=== PATIENT | male | born 1990 | race Caucasian/White ===

== ENCOUNTER 2023-09-28 03:19 | Day surgery (SDC) | payer OTHER, SELFPAY ==
[2023-09-28] VITALS (11 sets, daily range): BP systolic 110–170; BP diastolic 65–98; PULSE 74–96; RESP 14–20; TEMP 36.5–37.1; O2SAT 94–98; BMI 43.6
--- NOTE | ~2023-09-28 | CT_ITS ---
EXAMINATION: CT ABDOMEN AND PELVIS WITHOUT CONTRAST CLINICAL INFORMATION: Right-sided flank pain COMPARISON: CT abdomen pelvis 12/06/2019, renal ultrasound 02/15/2021 TECHNIQUE: Multidetector volumetric imaging was performed from the superior aspect of the liver through the pubic symphysis. Sagittal and coronal reformatted images were obtained on the technologist's workstation. This CT examination was performed using dose optimization techniques as appropriate, variously including the following: *Automated exposure control *Adjustment of mA and/or kV according to patient size (this includes techniques or standardized protocols for targeted exams where dose is matched to indication/reason for exam; i.e. extremities or head) *Use of iterative reconstruction technique DLP: 914 mGy-cm FINDINGS: LUNG BASES: The visualized lung bases are unremarkable. LIVER, GALLBLADDER, AND BILIARY TREE: The liver is enlarged measuring just over 19 cm in cephalocaudad dimension with decreased attenuation consistent with hepatic steatosis. No focal hepatic lesion or biliary ductal dilatation is present. The gallbladder is unremarkable with no evidence of radiopaque gallstones, gallbladder wall thickening, or obvious pericholecystic inflammatory changes. PANCREAS: Unremarkable. SPLEEN: Spleen is mildly enlarged at 12.6 cm. ADRENAL GLANDS: Unremarkable. KIDNEYS AND URETERS: Right: There is an obstructing 6 x 3 mm stone present at the right UVJ with dilatation of the ureter and mild right-sided hydronephrosis. 2 nonobstructing intrarenal calculi are seen the largest measuring just under 5 mm in the upper pole. No renal masses are seen. Left: There is a nonobstructing 3 mm left lower pole renal calculus. No hydronephrosis or renal masses. The left ureter appears normal. BLADDER: Unremarkable. GASTROINTESTINAL TRACT: The small and large bowel are unremarkable. The appendix is unremarkable. ABDOMINAL WALL: No significant hernia is appreciated. LYMPH NODES: Normal. VASCULAR: Unremarkable. PELVIC VISCERA: The prostate and seminal vesicles are unremarkable. OSSEOUS STRUCTURES: Unremarkable. CT/CT abdomen pelvis wo IV con IMPRESSION: 1. Obstructing 6 x 3 mm right UVJ calculus with mild right-sided hydronephrosis. 2. Bilateral nonobstructing intrarenal calculi. 3. Enlarged fatty liver with mild splenomegaly. Fleischner guidelines were followed.
--- NOTE | ~2023-09-28 | FL_ITS ---
EXAMINATION: XR FLUOROSCOPY WITH IMAGES CLINICAL INFORMATION: Cystoscopy, ureteroscopy, retrograde urography, laser therapy and right ureteric stent placement; 6 mm right UVJ obstructing calculus, with secondary moderate right hydronephroureter. COMPARISON: CT abdomen and pelvis dated 09/28/2023. TECHNIQUE: Fluoroscopy Supervised By: Dr. Colvin. Fluoroscopy Time: 0.3 minutes. Cumulative Dose: 20.9 mGy. DAP: 5.71 Gycm2. Images: 5. FINDINGS: The submitted images show contrast outlining the right intrarenal and extrarenal urinary collecting structures and placement of a double pigtail right ureteric catheter. FL/FL guidance in OR IMPRESSION: Intraoperative fluoroscopic guidance is provided during right urologic procedure. Please see the patient's Operative Report for full procedural details.
[2023-09-28 03:46] LABS: Basophils Percent Auto 0.2 % (0-2); Eosinophils Percent Auto 0.2 % (0-4); Hematocrit 43.5 % (42.0-52.0); Hemoglobin 15.2 g/dl (14.0-18.0); Imm Gran Abs Auto 0.04 X10*3/uL (0.00-0.03); Imm Gran Pct Auto 0.3 % (0.0-0.4); Lymphocytes Absolute Auto 1.4 X10*3/uL (1.2-4.9); MANUAL DIFF FLAG NO; Mean Corpuscular HGB Conc 34.9 g/dl (31.0-36.0); Mean Corpuscular Hemoglobin 29.4 pg (27.0-33.0); Mean Corpuscular Volume 84.1 fL (80.0-98.0); Mean Platelet Volume 9.6 fL (9.4-12.4); Monocytes Absolute Auto 0.6 X10*3/uL (0.1-1.2); Monocytes Percent Auto 4.4 % (2-11); Neutrophils Absolute Auto 10.4 x10*3/uL (2.0-8.3); Neutrophils Percent Auto 83.9 % (45-73); Platelet Count 264 X10*3/uL (160-400); Red Blood Count 5.17 X10*6/uL (4.60-5.80); Red Cell Distribution Width 12.5 % (11.0-16.0); White Blood Count 12.4 X10*3/uL (4.8-10.8)
--- NOTE | 2023-09-28 03:49 | PC.NURSE ---
pt biba from home, a&ox4, respirations even and unlabored, reporting onset of right flank pain x1 day, pt reports being seen at [facility] and being diagnosed with kidney stones and discharged with oxy. pt reports no relief with oxy. pt reports hx of stones. denies urinary symptoms. 20G placed in right wrist, labs obtained and sent to lab. pt normal sinus on tele 88-90bpm.
[2023-09-28 03:59] LABS: Alanine Aminotransferase 29 U/L (0-40); Albumin Level 4.6 g/dL (3.5-5.0); Alkaline Phosphatase 79 U/L (39-117); Anion Gap 15 (12-20); Aspartate Amino Transferase 22 U/L (5-37); Bilirubin Total 0.6 mg/dL (0.0-1.0); Blood Urea Nitrogen 18 mg/dL (9-16); Calcium 9.8 mg/dL (8.4-10.2); Carbon Dioxide 21 mmol/L (22-29); Chloride 108 mmol/L (96-108); Creatinine Clr Calc Pharmacy 134.8; Estimated Glomerular Filt Rate > 60; Glucose Random 141 mg/dL (60-115); Potassium 4.1 mmol/L (3.3-5.1); Sodium 140 mmol/L (135-145); Total Protein 8.3 g/dL (6.5-8.0)
[2023-09-28 04:40] LABS: Appearance Urine Clear; Color Urine Yellow; Glucose Urine UA Negative (Negative); Leukocyte Esterase Urine Negative (Negative); Nitrite Urine Negative (Negative); Specific Gravity - Urine 1.025 (1.005-1.025); UMIC TRIGGER UACC YES; Urine Blood Moderate (2+) (Negative); Urine Ketones 15 mg/dL (Negative); Urine Protein Trace mg/dL (Neg-Trace)
[2023-09-28 04:45] LABS: Bacteria Urine None Seen (None Seen); Hyaline Casts Urine 0-2 /LPF (0-2); Squamous Epithelial Cell Urine 0-2 /HPF (0-2); WBC Urine 0-5 /HPF (0-5)
--- NOTE | 2023-09-28 07:19 | ED_ITS ---
HPI - Male Genitourinary General Chief complaint: Urogenital-Male Stated complaint: kidney stones Time Seen by Provider: 09/28/23 06:58 Source: patient Mode of arrival: ambulatory Limitations: no limitations History of Present Illness HPI Narrative: 32 yo male with PMH of kidney stones here with abrupt onset R flank pain yesterday seen by Cosme YAN dx with distal ureter stone 5mm sent home with zofran and oxycodone pain returned this AM with n/v unable to get comfortable. Last dose of pain medications 210am. Has urologist Dr. Tyson. PATEL Complaint: other (flank pain) Onset (ago): hour(s) (several) Duration: constant Location: right flank Radiation: right inguinal region Severity: severe Quality: sharp Relieving factors: none Exacerbating factors: none Context: other (kidney stones) Associated symptoms: Reports nausea/vomiting Related Data Allergies Allergy/AdvReac Type Severity Reaction Status Date / Time No Known Allergies Allergy Verified 09/28/23 03:39 Review of Systems 2 Review of Systems: Constitutional : No Fever, No Chills ENT/Mouth : No sore throat Eyes: No Eye Pain, No Swelling, No Redness Cardiovascular : No Chest Pain, No SOB Respiratory : No Cough, No Sputum, No Wheezing Gastrointestinal : positive Nausea, positive Vomiting, No Diarrhea, positive abdominal pain Genitourinary : no Dysuria, no urinary frequency, positive Hematuria, positive Flank Pain, Musculoskeletal : No joint pain, No Myalgias Skin : No Skin Lesions, No rash Neuro : No Weakness, No Numbness, No Headache Psych : No Anxiety/Panic, No Depression Heme/Lymph: No Bruising, No Lymphadenopathy Endocrine : No Polyuria, No Polydipsia All other systems reviewed and are negative [facility] Past Medical History Attestation statement: The following information was validated with the patient. Medical History Renal colic Social History Social History Smoked in Last 30 Days: No Use of substances other than those prescribed or required for medical reasons: No Advance Directives: No Advance Directives Information Provided: Yes Physical Exam 2 Vital Signs: Vital Signs: Last Vital Signs Temp 97.7 F 09/28/23 10:40 Pulse 85 09/28/23 10:40 Resp 20 09/28/23 10:40 BP 117/69 09/28/23 10:40 Pulse Ox 96 09/28/23 10:40 O2 Del Method Room Air 09/28/23 10:40 BMI result Body Mass Index 43.6 Appearance: Alert. Oriented X3. in pain mild acute distress. Eyes: Pupils equal, round and reactive to light. ENT: Pharynx normal. Neck: Normal inspection. Neck supple. CVS: Normal heart rate and rhythm. Pulses normal. Respiratory: No respiratory distress. Breath sounds normal. Abdomen: Soft and nontender. Skin: Skin warm and dry. pale skin color. Normal skin turgor. Extremities: No lower extremity edema. No calf ttp Neuro: Oriented X 3. No motor deficit. No sensory deficit. Course Course Course Narrative: still in pain repeat IV dilaudid ordered along with Toradol and repeat imaging Medications Administered Discontinued Medications Generic Name Dose Route Start Last Admin Trade Name Freq PRN Reason Stop Dose Admin Hydromorphone HCl 1 mg 09/28/23 07:18 09/28/23 07:54 Hydromorphone Hcl 1 Mg/Ml Syringe IVPUSH 09/28/23 07:19 1 mg ONCE ONE Administration Protocol Hydromorphone HCl 1 mg 09/28/23 09:11 09/28/23 10:12 Hydromorphone Hcl 1 Mg/Ml Syringe IVPUSH 09/28/23 09:12 1 mg ONCE ONE Administration Protocol Sodium Chloride 1,000 mls @ 999 mls/hr 09/28/23 07:30 09/28/23 09:44 Ns IV 09/28/23 08:30 Infused .Q1H1M YUE Infusion Ketorolac Tromethamine 30 mg 09/28/23 09:11 09/28/23 10:12 Ketorolac Tromethamine 15 Mg/Ml Vial IVPUSH 09/28/23 09:12 30 mg ONCE ONE Administration Ondansetron HCl 4 mg 09/28/23 07:18 09/28/23 07:55 Ondansetron Hcl 4 Mg/2 Ml Vial IVPUSH 09/28/23 07:19 4 mg ONCE ONE Administration Tamsulosin HCl 0.4 mg 09/28/23 07:18 09/28/23 07:55 Tamsulosin Hcl 0.4 Mg Capsule PO 09/28/23 07:19 0.4 mg ONCE ONE Administration Medical Decision Making Medical Decision Making MDM Narrative: 32 yo male with known R ureteral stone distal 5mm from [place] here with recurrent pain - no fevers at this time will provide fluids, labs, UA and treat with zofran, flomax and IV dilaudid. Will obtain imaging from [facility] to assess size and location of stone as well. Differential Diagnosis Differential Diagnoses: The differential diagnosis associated with the presentation includes ureteral calculus, UTI Admission/Observation Consideration of admission/observation: Escalation of care including admission/observation considered repeat pain medications discussed with urology physician observation started at 1239pm until OR opens up this afternoon Consult Healthcare Provider Management of the patient was discussed with: Veterinary Surgery Technologist (urology aware) will try to add on this afternoon Lab Data MDM Lab Attestation statement: I reviewed the patient's lab results. 09/28/23 03:41 09/28/23 03:41 Labs: Lab Results 09/28/23 09/28/23 Range/Units 03:41 04:33 WBC 12.4 H (4.8-10.8) X10*3/uL RBC 5.17 (4.60-5.80) X10*6/uL Hgb 15.2 (14.0-18.0) g/dl Hct 43.5 (42.0-52.0) % MCV 84.1 (80.0-98.0) fL MCH 29.4 (27.0-33.0) pg MCHC 34.9 (31.0-36.0) g/dl RDW 12.5 (11.0-16.0) % Plt Count 264 (160-400) X10*3/uL MPV 9.6 (9.4-12.4) fL Immature Gran % (Auto) 0.3 (0.0-0.4) % Neut % (Auto) 83.9 H (45-73) % Lymph % (Auto) 11.0 L (20-40) % [place] % (Auto) 4.4 (2-11) % Eos % (Auto) 0.2 (0-4) % Baso % (Auto) 0.2 (0-2) % Lymph # (Auto) 1.4 (1.2-4.9) X10*3/uL [place] # (Auto) 0.6 (0.1-1.2) X10*3/uL Eos # (Auto) 0.0 (0.0-0.4) X10*3/uL Baso # (Auto) 0.0 (0.0-0.2) X10*3/uL Abs Immat Gran (auto) 0.04 H (0.00-0.03) X10*3/uL Absolute Neuts (auto) 10.4 H (2.0-8.3) x10*3/uL Absolute Nucleated RBC 0.000 (0.0-0.012) X10*3/uL Nucleated RBC % (auto) 0.0 (0.0-0.2) /100WBC Sodium 140 (135-145) mmol/L Potassium 4.1 (3.3-5.1) mmol/L Chloride 108 (96-108) mmol/L Carbon Dioxide 21 L (22-29) mmol/L Anion Gap 15 (12-20) BUN 18 H (9-16) mg/dL Creatinine 1.09 (0.5-1.4) mg/dL Estim Creat Clear Calc 134.8 Estimated GFR > 60 Random Glucose 141 H (60-115) mg/dL Calcium 9.8 (8.4-10.2) mg/dL Total Bilirubin 0.6 (0.0-1.0) mg/dL AST 22 (5-37) U/L ALT 29 (0-40) U/L Alkaline Phosphatase 79 (39-117) U/L Total Protein 8.3 H (6.5-8.0) g/dL Albumin 4.6 (3.5-5.0) g/dL Urine Color Yellow Urine Appearance Clear Urine pH 6.0 (5.0-9.0) Ur Specific [place] 1.025 (1.005-1.025) Urine Protein Trace (Neg-Trace) mg/dL Urine Glucose (UA) Negative (Negative) mg/dL Urine Ketones 15 (Negative) mg/dL Urine Blood Moderate (2+) H (Negative) Urine Nitrite Negative (Negative) Ur Leukocyte Esterase Negative (Negative) Urine RBC 11-20 H (0-2) /HPF Urine WBC 0-5 (0-5) /HPF Ur Squamous Epith Cells 0-2 (0-2) /HPF Urine Bacteria None Seen (None Seen) Hyaline Casts 0-2 (0-2) /LPF Independent Interpretation I performed an independent interpretation of an: CT Scan (obstructing distal UVJ stone 6x3mm) Radiology Impression Discussion of test interpretation with radiology: I have reviewed the radiologist's reading. External Record Review External record reviewed: Outpatient record Prescription Management I considered prescription management with: Pain Medication and Other Critical Care Time Critical Care Time Critical Care Time: Yes Total Critical Care Time: 60 Attestation: IVF, repeat IV dilaudid x 2 with improvement in pain, review of records I attest to this time spent taking care of the patient Discharge Plan Discharge Clinical Impression: Ureterolithiasis Nausea & vomiting Qualifiers: Vomiting type: unspecified Qualified Code(s): R11.2 - Nausea with vomiting, unspecified Patient Disposition: Admitted as Observation
[2023-09-28] MEDS: 0.9 % Sodium Chloride 1,000 ML 999 ML IV ×2 (07:47→13:44)
[2023-09-28] MEDS: HYDROmorphone HCl 1 MG/ML SYRINGE IVPUSH ×3 (07:54→14:33)
[2023-09-28] MEDS: Tamsulosin HCL 0.4 MG CAPSULE PO (07:55)
[2023-09-28] MEDS: ondansetron HCL 4 MG/2 ML VIAL IVPUSH ×3 (07:55→18:47)
--- NOTE | 2023-09-28 08:00 | PC.NURSE ---
meds and fluid given as documented. pt resting quietly, not apparent distress.
--- NOTE | 2023-09-28 09:41 | PC.NURSE ---
Fluid ended, pain reassessed. New order for pain relief.
[2023-09-28] MEDS: Ketorolac Tromethamine 15 MG/ML VIAL 30 MG IVPUSH (10:12)
--- NOTE | 2023-09-28 14:32 | PM.UROCN ---
History of Present Illness Consult details Consult date: 09/28/23 Narrative: Pratik is a 32-year-old male who presented with right flank pain nausea vomiting. CT imaging note bilateral renal stones with a 6 mm obstructing right ureteral stone. Review of Systems Review of Systems: Yes all other systems are reviewed and are negative Constitutional: Constitutional: Reports no additional constitutional complaints Eyes: Eyes: Reports no additional eye complaints ENT: Reports system reviewed and no additional complaints, except as documented Cardiovascular: Cardiovascular: Reports no additional cardiovascular complaints Respiratory: Respiratory: Reports no additional respiratory complaints Gastrointestinal: Gastrointestinal: Reports no additional gastrointestinal complaints Genitourinary: Genitourinary: Reports as per HPI Musculoskeletal: Musculoskeletal: Reports no additional musculoskeletal complaints Integumentary/Breasts: Skin/Breast: Reports system reviewed and no additional complaints, except as docu Neurologic: Reports system reviewed and no additional complaints, except as documented Psychiatric: Psychiatric: Reports no additional psychiatric complaints Endocrine: Endocrine: Reports no additional endocrine complaints Hematologic/Lymphatic: Hematologic/Lymphatic: Reports no additional hematologic/lymphatic complaints Allergic/Immunologic: Allergic/Immunologic: Reports no additional allergic/immunologic complaints [facility] Past Medical History Medical History Renal colic Social History Social History Smoked in Last 30 Days: No Use of substances other than those prescribed or required for medical reasons: No Advance Directives: No Advance Directives Information Provided: Yes Meds Allergies Allergy/AdvReac Type Severity Reaction Status Date / Time No Known Allergies Allergy Verified 09/28/23 03:39 Active Medications: Current Medications Hydromorphone HCl (Hydromorphone Hcl 1 Mg/Ml Syringe) 1 mg IVPUSH Q3H PRN; Protocol PRN Reason: Pain, Moderate(Pain Scale 4-6) Sodium Chloride (Ns) 1,000 mls @ 100 mls/hr IVCONT .Q10H YUE Ondansetron HCl (Ondansetron Hcl 4 Mg/2 Ml Vial) 4 mg IVPUSH Q8H PRN PRN Reason: Nausea and Vomiting Physical Exam Vital Signs: Vital Signs: Last Vital Signs Temp 97.7 F 09/28/23 10:40 Pulse 85 09/28/23 10:40 Resp 20 09/28/23 10:40 BP 117/69 09/28/23 10:40 Pulse Ox 96 09/28/23 10:40 O2 Del Method Room Air 09/28/23 10:40 BMI result Body Mass Index 43.6 Const: General: healthy appearing, no acute distress and well developed Orientation/consciousness: patient oriented x3 HEENT: Head: Yes normocephalic and Yes atraumatic Eyes: Conjunctivae: conjunctivae normal Neck: Neck: Yes normal visual inspection Chest: Chest palpation & inspection: normal inspection of the chest Resp: Effort & Inspection: normal respiratory effort Cardio: Rate: regular rate GI: Inspection: Yes normal to inspection Neuro: General: patient oriented x3 Psych: Appearance: grossly normal Affect: normal affect Results Labs 09/28/23 03:41 09/28/23 03:41 Labs: Abnormal lab results 09/28/23 09/28/23 Range/Units 03:41 04:33 WBC 12.4 H (4.8-10.8) X10*3/uL Neut % (Auto) 83.9 H (45-73) % Lymph % (Auto) 11.0 L (20-40) % Abs Immat Gran (auto) 0.04 H (0.00-0.03) X10*3/uL Absolute Neuts (auto) 10.4 H (2.0-8.3) x10*3/uL Carbon Dioxide 21 L (22-29) mmol/L BUN 18 H (9-16) mg/dL Random Glucose 141 H (60-115) mg/dL Total Protein 8.3 H (6.5-8.0) g/dL Urine Blood Moderate (2+) H (Negative) Urine RBC 11-20 H (0-2) /HPF Short CBC 09/28/23 Range/Units 03:41 WBC 12.4 H (4.8-10.8) X10*3/uL Hgb 15.2 (14.0-18.0) g/dl Hct 43.5 (42.0-52.0) % Plt Count 264 (160-400) X10*3/uL BMP 09/28/23 03:41 Sodium 140 Potassium 4.1 Chloride 108 Carbon Dioxide 21 L BUN 18 H Creatinine 1.09 Calcium 9.8 Liver Function 09/28/23 Range/Units 03:41 Total Bilirubin 0.6 (0.0-1.0) mg/dL AST 22 (5-37) U/L ALT 29 (0-40) U/L Alkaline Phosphatase 79 (39-117) U/L Albumin 4.6 (3.5-5.0) g/dL Urine 09/28/23 Range/Units 04:33 Urine Color Yellow Urine Appearance Clear Urine pH 6.0 (5.0-9.0) Ur Specific [place] 1.025 (1.005-1.025) Urine Protein Trace (Neg-Trace) mg/dL Urine Glucose (UA) Negative (Negative) mg/dL Imaging Abdomen CT scan report/results: report reviewed and image reviewed CT scan - pelvis: report reviewed and image reviewed Assessment and Plan (1) Ureterolithiasis: Status: Acute (2) Nausea & vomiting: Qualifiers: Vomiting type: unspecified Qualified Code(s): R11.2 - Nausea with vomiting, unspecified Status: Acute (3) Hydronephrosis, right: Status: Acute Plan Plan for Cystoscopy, right ureteroscopy, possible laser lithotripsy, possible ureteral stent. Risks discussed included but not limited to, possible need to repeat procedure if stone is not completely fragmented, Irritative voiding symptoms, bladder spasms, urgency, blood in urine. Procedures Date of Service Date of Service: 09/28/23
[2023-09-28] MEDS: 0.9 % Sodium Chloride 1,000 ML 100 ML IVCONT (15:44)
--- NOTE | 2023-09-28 16:04 | PC.NURSE ---
verbal report given to ENGINEERING OPERATIONS LEADER at bedside.
--- NOTE | 2023-09-28 16:21 | HO.ANESPROP2 ---
[facility] Active Problems Active Problems: All Active Problems Hydronephrosis, right (Acute) Ureterolithiasis (Acute) Nausea & vomiting (Acute) Past Medical History Medical History Renal colic Functional capacity: independent ambulation Family History Family history of problems with anesthesia: No Surgical History History of Problems with Anesthesia: Yes (states afib x 1 four years ago with prior cysto. f/u negative: no further problems) Social History Social History Smoked in Last 30 Days: No Use of substances other than those prescribed or required for medical reasons: No Advance Directives: No Advance Directives Information Provided: Yes Meds Allergies Allergy/AdvReac Type Severity Reaction Status Date / Time No Known Allergies Allergy Verified 09/28/23 03:39 Active Medications: Current Medications Fentanyl (Fentanyl Citrate/Pf 100 Mcg/2 Ml Vial) 25 mcg IVPUSH Q5M PRN; Protocol PRN Reason: Pain, Moderate(Pain Scale 4-6) Stop: 09/28/23 22:19 Hydromorphone HCl (Hydromorphone Hcl 1 Mg/Ml Syringe) 1 mg IVPUSH Q3H PRN; Protocol PRN Reason: Pain, Moderate(Pain Scale 4-6) Last Admin: 09/28/23 14:33 Dose: 1 mg Hydromorphone HCl (Hydromorphone Hcl 0.5 Mg/0.5 Ml Syringe) 0.5 mg IVPUSH Q5M PRN; Protocol PRN Reason: Pain, Severe (Pain Scale 7-10) Stop: 09/28/23 22:20 Sodium Chloride (Ns) 1,000 mls @ 100 mls/hr IVCONT .Q10H YUE Last Admin: 09/28/23 15:44 Dose: 100 mls/hr Ondansetron HCl (Ondansetron Hcl 4 Mg/2 Ml Vial) 4 mg IVPUSH Q8H PRN PRN Reason: Nausea and Vomiting Last Admin: 09/28/23 14:33 Dose: 4 mg Exam Height,Weight and Vital Signs: Height 5 ft 10 in Weight 137.7 kg Last Vital Signs Temp 98.4 F 09/28/23 15:10 Pulse 74 09/28/23 15:10 Resp 18 09/28/23 15:10 BP 117/70 09/28/23 15:10 Pulse Ox 96 09/28/23 15:10 O2 Del Method Room Air 09/28/23 15:10 Pertinent Lab Results Pertinent Lab Results: Laboratory Tests 09/28/23 09/28/23 03:41 04:33 WBC 12.4 H RBC 5.17 Hgb 15.2 Hct 43.5 MCV 84.1 MCH 29.4 MCHC 34.9 RDW 12.5 Plt Count 264 MPV 9.6 Immature Gran % (Auto) 0.3 Neut % (Auto) 83.9 H Lymph % (Auto) 11.0 L [place] % (Auto) 4.4 Eos % (Auto) 0.2 Baso % (Auto) 0.2 Lymph # (Auto) 1.4 [place] # (Auto) 0.6 Eos # (Auto) 0.0 Baso # (Auto) 0.0 Abs Immat Gran (auto) 0.04 H Absolute Neuts (auto) 10.4 H Absolute Nucleated RBC 0.000 Nucleated RBC % (auto) 0.0 Sodium 140 Potassium 4.1 Chloride 108 Carbon Dioxide 21 L Anion Gap 15 BUN 18 H Creatinine 1.09 Estim Creat Clear Calc 134.8 Estimated GFR > 60 Random Glucose 141 H Calcium 9.8 Total Bilirubin 0.6 AST 22 ALT 29 Alkaline Phosphatase 79 Total Protein 8.3 H Albumin 4.6 Urine Color Yellow Urine Appearance Clear Urine pH 6.0 Ur Specific [place] 1.025 Urine Protein Trace Urine Glucose (UA) Negative Urine Ketones 15 Urine Blood Moderate (2+) H Urine Nitrite Negative Ur Leukocyte Esterase Negative Urine RBC 11-20 H Urine WBC 0-5 Ur Squamous Epith Cells 0-2 Urine Bacteria None Seen Hyaline Casts 0-2 Airway Mallampati Class: III TM Dist: <=3cm Neck ROM: Full Loose/Missing/Broken Teeth: No Heart: rrr Lungs: cta Other: cecilia Assessment and Plan Assessment Anesthesia Assessment: Anesthesia Plan Discussed and Chart Reviewed Final Anesthetic Review Family History of Problems with Anesthesia: No History of Problems with Anesthesia: Yes (states afib x 1 four years ago with prior cysto. f/u negative: no further problems) NPO: Yes ASA Class: III Final Preanesthetic Review: No Changes in Pt Med Stat, Meds/Allgs Chart Reviewed, Consent Obtained/Reviewed and Anes Risks/Benef Reviewed Patient Risk: Intermediate Procedure Risk: Intermediate Anesthetic Plan Anesthetic Plan: GA Disposition: Standard PACU
--- NOTE | 2023-09-28 18:02 | P.OP_ITS ---
Operative Note Operative Note Date of Service: 09/28/23 Narrative: PreOperative Diagnosis:?? Right ureteral stone, right hydronephrosis Post Operative Diagnosis:?? Right ureteral stone, right hydronephrosis Procedure: - cystoscopy, right retrograde, right ureteroscopy laser lithotripsy stent insertion, 6 [place] by multi length 22 to 32 cm Surgeon:?Dr Emily Colvin Anesthesia:? General Indications for procedure: Right flank pain nausea vomiting secondary to obstructive uropathy right ureteral stone. Procedure: After informed consent was verified the patient was brought to the operating placed on the OR table in supine position.? General Anesthesia was administered per protocol.? The patient was placed in lithotomy position, prepped and draped in the usual sterile fashion.? Safety pause time-out and side of surgery confirmed.? Antibiotics confirmed. 2% lidocaine jelly 10 mL was pa ssed transurethrally. A 22 [place] cystoscope was inserted transurethrally, the bulbous urethra was within normal limits. The prostatic urethra was nonobstructive. The bladder was visualized.? Both ureteric orifices were in normal position. An open-ended ureteral catheter was passed into the right ureteral orifice and a retrograde examination was performed. There was a filling defect in the distal ureter and dilatation of the proximal ureter and renal pelvis and calyces. A guidewire was passed through the ureteral catheter into the kidney. The balloon dilator size 15 fr was passed over the guide -wire the balloon was inflated to 8 mmHg and the intramural ureter was dilated for 40 seconds. The balloon was deflated and removed. After removing the balloon dilator the cystoscope was removed, leaving the guidewire in place which was used as the safety and was attached to the draping. The semi rigid ureteroscope was passed transurethrally into the right distal ureter to the level of the stone in the ureter. Laser lithotripsy of the stone was done using the 365 fiber, the stone was lasered on the dusting setting for minimal amount of time before migrating superficially into the mid to proximal ureter. Attempts to pass the ureteroscope proximally noted some resistance in the mid ureter at the iliac juncture; And decision to place a stent was made. The ureteroscope was removed. A? 6 [place] by multi length cm stent was placed into the ureter and renal pelvis under a combination of fluoroscopy and direct visualization. The bladder was emptied.? The rigid cystoscope was removed. ? The patient tolerated the procedure well and was brought to the recovery room in stable condition. Complications: None Drains: Ureteral stent as dictated above
[2023-09-28] MEDS: Phenazopyridine HCL 200 MG TABLET PO (18:17)
== END 2023-09-28 19:03 | disposition home or self-care (01) ==
LOC: HO.ED 13:01 → HO.SSS 13:17
PROVIDERS: Emergency Provider Emergency Medicine; Visit Provider Urology
PROC: (CPT 52356; principal; 2023-09-28 17:00)
DX: N20.1 Calculus of ureter (principal); N13.30 Unspecified hydronephrosis; R11.2 Nausea with vomiting, unspecified
CPT/HCPCS: 52356; 36415; 74176; 80053; 81001; 85025; 96361; 96374; 96375; 96376; 99285; C1726; C1769; C2617; J0690; J1170; J1885; J2250; J2371; J2405; J2704; J3010; Q9967

== ENCOUNTER → 2023-09-28 13:10 | Outpatient (BNV) | payer OTHER, SELFPAY | PROVIDERS: Emergency Provider Emergency Medicine; Visit Provider Urology | DX: N20.1 Calculus of ureter (principal); N13.30 Unspecified hydronephrosis; R11.2 Nausea with vomiting, unspecified | CPT/HCPCS: 52356; 74420; 99284 ==

== ENCOUNTER 2023-10-11 14:17 | Outpatient (AMB) | payer OTHER, SELFPAY ==
--- NOTE | 2023-10-11 14:21 | A.OFFVIS_ITS ---
Intake Visit Reasons: Follow up ureteroscopy stent Intake Note: Patient presents today for follow up: Meds- Oxybutynin & pyridiun Allergies to Antibiotic- No Known Allergies Blood Thinner- None Software Engineer Sales Required: No Accompanied by: Self / Same As Patient Allergies No Known Allergies Allergy (Verified 10/11/23 15:16) Medication List - Last Reconciled 10/11/23 by Emily Colvin MD oxybutynin chloride ER 5 mg PO .qhs oxycodone-acetaminophen 5-325 mg (Percocet) 1 tab PO .q6h-8h PRN phenazopyridine (Pyridium) 200 mg PO Q8H PRN HPI Comments Details: Pratik is a 32-year-old male who was initially evaluated 09/28/23 with complaints of right flank pain nausea vomiting. CT imaging noted bilateral renal stones with a 6 mm obstructing right ureteral stone. He is status post cystoscopy right ureteroscopy right ureteral stent. He presents for follow-up for further stone management. He states that he has had some bladder spasms due to the stent. I have discussed cysto right ureteroscopy possible laser lithotripsy stent exchange vs stent removal. [facility] Medical History (Updated 10/17/23 @ 17:15 by Emily Colvin MD) Renal colic Surgical History (Updated 10/11/23 @ 15:17 by YONNY Stewart) Hx of lithotripsy Family History (Updated 10/11/23 @ 15:17 by YONNY Stewart) Father No problems noted. Mother No problems noted. Social History Patient Tobacco Use Status: Never used Tobacco Review of Systems Const All systems reviewed & are unremarkable except as noted in HPI and below Reports no additional complaints Eyes Reports no additional complaints ENT Reports no additional complaints Card Reports no additional complaints Resp Reports no additional complaints GI Reports no additional complaints Reports as per HPI Musc Reports no additional complaints Skin/Breast Reports system reviewed and no additional complaints, except as documented Neuro Reports no additional complaints Psych Reports no additional complaints Endo Reports no additional complaints Ari/Lymph Reports no additional complaints Aller/Immun Reports no additional complaints Physical Exam Const General: healthy appearing, no acute distress and well developed Orientation/consciousness: patient oriented x3 HEENT Head: Yes normocephalic and Yes atraumatic Eyes Conjunctivae: conjunctivae normal Neck Neck: Yes normal visual inspection Chest Chest palpation & inspection: normal inspection of the chest Resp Effort & Inspection: normal respiratory effort Cardio Rate: regular rate GI Inspection: Yes normal to inspection Neuro General: patient oriented x3 Psych Appearance: grossly normal Affect: normal affect Results AMB Urinalysis, Automated UA Leukoctes 500 Edi/uL Last Edit by YONNY Stewart on 10/11/23 14:42 3+ Luan Tony 10/11/23 14:42 UA Nitrite Positive Last Edit by YONNY Stewart on 10/11/23 14:42 UA Urobilinogen 4 mg/dL Last Edit by YONNY Stewart on 10/11/23 14:42 UA Protein 30 mg/dL Last Edit by YONNY Stewart on 10/11/23 14:42 UA pH 5.0 Last Edit by YONNY Stewart on 10/11/23 14:42 UA Blood 200 Michael/uL Last Edit by YONNY Stewart on 10/11/23 14:42 3+ Luan Tony 10/11/23 14:42 UA Specific Blackburn 1.020 Last Edit by YONNY Stewart on 10/11/23 14: 42 UA Ketone Positive Last Edit by YONNY Stewart on 10/11/23 14:42 5 mg/dL Luan Tony 10/11/23 14:42 UA Bilirubin 2 mg/dL Last Edit by YONNY Stewart on 10/11/23 14:42 UA Glucose 0 mg/dL Last Edit by YONNY Stewart on 10/11/23 14:42 Results Reviewed Results Reviewed: Laboratory Last Values Urine pH (Auto) 5.0 10/11/23 14:40 Specific Blackburn (Auto) 1.020 10/11/23 14:40 Urine Protein (Auto) 30 mg/dL 10/11/23 14:40 Glucose (UA)(Auto) 0 mg/dL 10/11/23 14:40 Urine Ketones (Auto) Positive 10/11/23 14:40 Urine Blood (Auto) 200 Michael/uL 10/11/23 14:40 Urine Nitrite (Auto) Positive 10/11/23 14:40 Urine Bilirubin (Auto) 2 mg/dL 10/11/23 14:40 Urine Urobilinogen (Auto) 4 mg/dL 10/11/23 14:40 Leukocyte Esterase (Auto) 500 Edi/uL 10/11/23 14:40 Date of Service: 09/28/23 EXAMINATION: CT ABDOMEN AND PELVIS WITHOUT CONTRAST CLINICAL INFORMATION: Right-sided flank pain COMPARISON: CT abdomen pelvis 12/06/2019, renal ultrasound 02/15/2021 TECHNIQUE: Multidetector volumetric imaging was performed from the superior aspect of the liver through the pubic symphysis. Sagittal and coronal reformatted images were obtained on the technologist's workstation. This CT examination was performed using dose optimization techniques as appropriate, variously including the following: *Automated exposure control *Adjustment of mA and/or kV according to patient size (this includes techniques or standardized protocols for targeted exams where dose is matched to indication/reason for exam; i.e. extremities or head) *Use of iterative reconstruction technique DLP: 914 mGy-cm FINDINGS: LUNG BASES: The visualized lung bases are unremarkable. LIVER, GALLBLADDER, AND BILIARY TREE: The liver is enlarged measuring just over 19 cm in cephalocaudad dimension with decreased attenuation consistent with hepatic steatosis. No focal hepatic lesion or biliary ductal dilatation is present. The gallbladder is unremarkable with no evidence of radiopaque gallstones, gallbladder wall thickening, or obvious pericholecystic inflammatory changes. PANCREAS: Unremarkable. SPLEEN: Spleen is mildly enlarged at 12.6 cm. ADRENAL GLANDS: Unremarkable. KIDNEYS AND URETERS: Right: There is an obstructing 6 x 3 mm stone present at the right UVJ with dilatation of the ureter and mild right-sided hydronephrosis. 2 nonobstructing intrarenal calculi are seen the largest measuring just under 5 mm in the upper pole. No renal masses are seen. Left: There is a nonobstructing 3 mm left lower pole renal calculus. No hydronephrosis or renal masses. The left ureter appears normal. BLADDER: Unremarkable. GASTROINTESTINAL TRACT: The small and large bowel are unremarkable. The appendix is unremarkable. ABDOMINAL WALL: No significant hernia is appreciated. LYMPH NODES: Normal. VASCULAR: Unremarkable. PELVIC VISCERA: The prostate and seminal vesicles are unremarkable. OSSEOUS STRUCTURES: Unremarkable. IMPRESSION: 1. Obstructing 6 x 3 mm right UVJ calculus with mild right-sided hydronephrosis. 2. Bilateral nonobstructing intrarenal calculi. 3. Enlarged fatty liver with mild splenomegaly. Assessment & Plan Assessment & Plan (1) Ureteral stent present: Code(s): Z96.0 - Presence of urogenital implants Category: Medical (2) Ureterolithiasis: Code(s): N20.1 - Calculus of ureter Category: Medical (3) Calcium nephrolithiasis: Code(s): N20.0 - Calculus of kidney Category: Medical Plan Cysto right ureteroscopy possible laser litho lithotripsy stent exchange vs stent removal. KUB today Orders: Orders AMB Urinalysis Automated 10/11/23 Z13.9 - Encounter for screening, unspecified Patient Instructions: The patient had an opportunity to ask questions regarding treatment plan. The patient expressed understanding and agreement with the above treatment plan. The patient is aware they should contact our office by phone for worsening of their current condition or the appearance of new symptoms. Compliance is encouraged with any medications and followup testing that is ordered. It is a privilege to be allowed the opportunity to participate in the urologic care of your patient. If you have any questions or concerns regarding treatment for the above conditions please do not hesitate to contact me. The office telephone contact is [phone]. This note is constructed in part using voice recognition software. While every effort has been made to ensure accuracy christian science reader errors may have been included. Yours sincerely, Emily Colvin MD Coding Level of Care Code Est Pt Level 4 (71076) Diagnoses Ureteral stent present Z96.0 Ureterolithiasis N20.1 Calcium nephrolithiasis N20.0
== END 2023-10-11 14:54 | disposition home or self-care (01) ==
PROVIDERS: PCP Internal Medicine; Visit Provider Urology
DX: Z96.0 Presence of urogenital implants (principal); N20.1 Calculus of ureter; N20.0 Calculus of kidney
CPT/HCPCS: 99214

== ENCOUNTER 2023-10-11 14:17 | Outpatient (REF) | payer OTHER, SELFPAY ==
--- NOTE | ~2023-10-11 | XR_ITS ---
EXAMINATION: XR ABDOMEN KUB CLINICAL INDICATION: Calculus of ureter, follow-up right ureteral stent, right ureteral stone status post ureteral stent. COMPARISON: 09/28/2023 hour images, 09/28/2023 CT abdomen and pelvis, 02/15/2021 x-ray abdomen. TECHNIQUE: 2 AP views of the abdomen. FINDINGS: Right double pigtail ureteral stent with proximal end overlying right renal pelvis and distal end overlying bladder. Small calcifications measuring up to 5 mm in the upper pole overlying the interpolar region of the right kidney. 3 mm left renal lower pole calculus redemonstrated. Nonobstructive bowel gas pattern. Moderate amount of stool in the colon. Bilateral sacroiliac joints are symmetric. XR/XR KUB IMPRESSION: Bilateral nephrolithiasis.
== END 2023-10-11 14:18 | disposition home or self-care (01) ==
LOC: HO.XRAY 14:17
PROVIDERS: PCP Internal Medicine; Visit Provider Urology
DX: N20.1 Calculus of ureter (principal); N20.0 Calculus of kidney; R10.9 Unspecified abdominal pain; Z96.0 Presence of urogenital implants; Z79.899 Other long term (current) drug therapy
CPT/HCPCS: 74018; 81003

== ENCOUNTER 2023-10-24 08:10 | Day surgery (SDC) | payer OTHER, MEDICAID, SELFPAY ==
[2023-10-20 11:20] VITALS: BMI 42.3
--- NOTE | 2023-10-20 13:15 | HO.ANESPROP2 ---
Documented by User: Jazmin Barth NP 10/20/23 13:17 HPI - Anesthesia Eval Consult details Narrative: 32yo M for Right Cystoscopy, Ureteroroscopy, Retro, Laser with stent exchange s/p cysto 09/28/23 with GA-LMA 5 PMFSH Active Problems Active Problems: All Active Problems Calcium nephrolithiasis (Acute) Ureteral stent present (Acute) Ureterolithiasis (Acute) Past Medical History Medical History Atrial fibrillation Renal colic Family History Family History Father No problems noted. Mother No problems noted. Family history of problems with anesthesia: No Surgical History Surgical History Hx of cystoscopy Hx of lithotripsy History of Problems with Anesthesia: Yes (states afib x 1 four years ago with prior cysto. f/u negative: no further problems) Social History Social History Household Members Other:: 2 year old daughter Are you a primary critical care specialist to a significant other at home: Yes (50/50 custody with child's mother) Do you presently have visiting nurse or other home services: No Patient Tobacco Use Status: Never used Tobacco Use of substances other than those prescribed or required for medical reasons: No Have you been hit, kicked, punched, or otherwise hurt by someone within the past year? If so, by whom?: No Are you DNR?: No Advance Directives: No Advance Directives Information Provided: Yes Advance Directives on File: No Recently lost weight without trying: No Eating poorly because of decreased appetite: No Nutrition Risks: No Nutritional Risk Poor oral hygiene: No Meds Allergies Allergy/AdvReac Type Severity Reaction Status Date / Time No Known Allergies Allergy Verified 10/11/23 15:16 Exam Height,Weight and Vital Signs: Height 5 ft 10 in Weight 133.81 kg Assessment and Plan Assessment Anesthesia Assessment: Chart Reviewed Final Anesthetic Review Family History of Problems with Anesthesia: No History of Problems with Anesthesia: Yes (states afib x 1 four years ago with prior cysto. f/u negative: no further problems) Documented by User: Tyesha Ross MD 10/24/23 10:53 PMFSH Past Medical History Medical History Atrial fibrillation Renal colic Family History Family History Father No problems noted. Mother No problems noted. Surgical History Surgical History Hx of cystoscopy Hx of lithotripsy Social History Social History Household Members Other:: 2 year old daughter Are you a primary critical care specialist to a significant other at home: Yes (50/50 custody with child's mother) Do you presently have visiting nurse or other home services: No Patient Tobacco Use Status: Never used Tobacco Use of substances other than those prescribed or required for medical reasons: No Have you been hit, kicked, punched, or otherwise hurt by someone within the past year? If so, by whom?: No Are you DNR?: No Advance Directives: No Advance Directives Information Provided: Yes Advance Directives on File: No Recently lost weight without trying: No Eating poorly because of decreased appetite: No Nutrition Risks: No Nutritional Risk Poor oral hygiene: No Meds Allergies Allergy/AdvReac Type Severity Reaction Status Date / Time No Known Allergies Allergy Verified 10/11/23 15:16 Exam Airway Mallampati Class: III TM Dist: >3cm Neck ROM: Full Loose/Missing/Broken Teeth: No Heart: RRR Lungs: CTA Assessment and Plan Assessment Anesthesia Assessment: Anesthesia Plan Discussed Final Anesthetic Review NPO: Yes ASA Class: III Final Preanesthetic Review: Meds/Allgs Chart Reviewed, Consent Obtained/Reviewed and Anes Risks/Benef Reviewed Patient Risk: Intermediate Procedure Risk: Low Anesthetic Plan Anesthetic Plan: GA Disposition: Standard PACU
--- NOTE | ~2023-10-24 | FL_ITS ---
EXAMINATION: XR FLUOROSCOPY WITH IMAGES CLINICAL INFORMATION: Stone, right. COMPARISON: CT abdomen and pelvis 09/28/2023. TECHNIQUE: Fluoroscopy Supervised By: Dr. Colvin. Fluoroscopy Time: 8.1 sec. Cumulative Dose: 4.32 mGy. Images: 1. FINDINGS: Intraoperative fluoroscopy and spot films were performed during a procedure in the OR. The renal calculi seen on the prior CT are not visualized on this single included image. Please see Dr. Colvin's report for complete details. FL/FL guidance in OR IMPRESSION: Intraoperative fluoroscopy and spot films were obtained. Please see Dr. Colvin's report for complete details.
[2023-10-24 08:40] VITALS: BMI 42.3
[2023-10-24 09:22] VITALS: BP 131/90; PULSE 73; RESP 16; TEMP 36.4; O2SAT 94
[2023-10-24] MEDS: Lactated Ringers 1,000 ML 100 ML IVCONT (09:23)
--- NOTE | 2023-10-24 10:16 | MHC.SHP ---
Pre-Procedural Eval Section A - 24 Hr Update-Section A only Date of Service: 10/24/23 The patient is an INPATIENT: No The patient has been examined within 24 hours of the surgical procedure. The History & Physical has been completed within 30 days and I have reviewed it.: Yes Section B - Complete if H&P > 30 days Chief Complaint: Unspecified hydronephrosis Allergies: Allergies Allergy/AdvReac Type Severity Reaction Status Date / Time No Known Allergies Allergy Verified 10/11/23 15:16 Plan Diagnosis/Plan: Unchanged I have reviewed the history and physical and performed a pertinent physical examination on my patient. No changes have occurred unless specified. Plan for Cystoscopy, right ureteroscopy, possible laser lithotripsy, possible ureteral stent exchange, versus remove right ureteral stent. Risks discussed included but not limited to, possible need to repeat procedure if stone is not completely fragmented, Irritative voiding symptoms, bladder spasms, urgency, blood in urine. Time Spent With Patient Time: Total time managing care of this patient today ____ minutes.
--- NOTE | 2023-10-24 11:02 | P.OP_ITS ---
Operative Note Operative Note Date of Service: 10/24/23 Narrative: PreOperative Diagnosis:?? Right ureteral stone, right hydronephrosis status post laser lithotripsy stent Post Operative Diagnosis:?? Right ureteral stone, right hydronephrosis status post laser lithotripsy stent Procedure: Cystoscopy, Right ureteroscopy stent removal Surgeon:?Dr Emily Colvin Anesthesia:? General Indications for procedure: Pratik is a 32-year-old male who status post right ureteroscopy laser lithotripsy and stent placement. The patient has anxiety related to removal of the stent while awake states that he has post traumatic stress related to being awake when having something placed through his urethra. He is being brought in for ureteroscopy to evaluate for any remaining stone fragments and stent removal. Procedure: After informed consent was verified the patient was brought to the operating placed on the OR table in supine position.? General Anesthesia was administered per protocol.? The patient was placed in lithotomy position, prepped and draped in the usual sterile fashion.? Safety pause time-out and side of surgery confirmed.? Antibiotics confirmed. A 22 Turkmen cystoscope was inserted transurethrally, the bulbous urethra was within normal limits. The prostatic urethra was nonobstructive. The bladder was visualized.? Both ureteric orifices were in normal position. The right ureteral stent was curled in the bladder. The? distal end of the ureteral stent was grasped with the flexible grasping forceps. The stent was pulled retrograde through the urethra. A guidewire was passed through the stent. The semi rigid ureteroscope was passed over the guidewire transurethrally into the right ureter there were no remaining fragments noted the ureteral tissue was within normal limits. The ureteroscope was removed. The guidewire was then removed. The patient tolerated the procedure well and was brought to the recovery room in stable condition. Complications: None Drains: Ureteral stent as dictated above
[2023-10-24 11:10] VITALS: BP 113/86; PULSE 86; RESP 18; TEMP 37; O2SAT 96
[2023-10-24 11:15] VITALS: BP 114/66; PULSE 88; RESP 16; O2SAT 97
[2023-10-24 11:20] VITALS: BP 100/50; PULSE 63; RESP 16; O2SAT 95
[2023-10-24 11:25] VITALS: BP 114/53; PULSE 65; RESP 16; O2SAT 96
[2023-10-24 11:40] VITALS: BP 109/57; PULSE 75; RESP 18; TEMP 36.6; O2SAT 94
== END 2023-10-24 12:50 | disposition home or self-care (01) ==
PROVIDERS: Visit Provider Urology
PROC: (CPT 52310; principal; 2023-10-24 09:50)
DX: N13.30 Unspecified hydronephrosis (principal); N20.1 Calculus of ureter; N20.0 Calculus of kidney; N32.89 Other specified disorders of bladder; F41.9 Anxiety disorder, unspecified; Z98.890 Other specified postprocedural states; I48.91 Unspecified atrial fibrillation; Z79.899 Other long term (current) drug therapy
CPT/HCPCS: 52310; C1758; C1769; J0131; J0690; J1100; J1885; J2250; J2371; J2405; J2704; J3010; Q9967

== ENCOUNTER → 2023-10-24 08:10 | Outpatient (BNV) | payer OTHER, SELFPAY | PROVIDERS: Visit Provider Urology | DX: N13.30 Unspecified hydronephrosis (principal); Z96.0 Presence of urogenital implants | CPT/HCPCS: 52310 ==

== ENCOUNTER 2023-11-09 13:15 | Outpatient (AMB) | payer OTHER, SELFPAY ==
--- NOTE | 2023-11-09 13:16 | A.OFFVIS_ITS ---
Intake Visit Reasons: Retrograde, Ureteroscopy- follow up Intake Note: Patient presents today for follow up: Meds- Oxybutynin & pyridiun--patient no longer using Allergies to Antibiotic- No Known Allergies Blood Thinner- None Product Merchandiser Required: No Accompanied by: Self / Same As Patient Allergies No Known Allergies Allergy (Verified 10/11/23 15:16) Medication List - Last Reconciled 11/09/23 by Emily Colvin MD pyridoxine (vitamin B6) 100 mg PO DAILY HPI Comments Details: 11/09/2023--Pratik is status post ureteroscopy and stent removal on 10/24/2023. He is followed for nephrolithiasis. He has bilateral renal stones largest 5 mm in the right kidney. I have discussed management including ESWL versus conservative monitoring. Discussed risks to include but not limited to, blood in the urine, bruising to the skin, kidney hematoma, possible need for another procedure if a stone fragment obstructs the ureter while passing, possible need to repeat procedure if stone is not completely fragmented. I have discussed diet modification to decrease risk of forming more kidney stones. I have discussed low oxalate diet and specific foods to avoid including certain green leafy vegetables, chocalate, nuts, tea, beets, rubarb; low sodium, decreased use of animal protein and the importance of hydration drinking up to 2-2.5 liters of fluids and use of adding lemon to water to increase citrate in the diet. A pamphlet is also provided today. Plan schedule right ESWL. 24 hour urine collection. Vitamin B6 100 mg daily CTAP: 09/28/23--6 mm right UVJ stone in addition right kidney 2 mm and 5 mm stone, left kidney 3 mm stone Review of chart: 10/11/2023 Pratik is a 32-year-old male who was initially evaluated 09/28/23 with complaints of right flank pain nausea vomiting. CT imaging noted bilateral zack al stones with a 6 mm obstructing right ureteral stone. He is status post cystoscopy right ureteroscopy right ureteral stent. He presents for follow-up for further stone management. He states that he has had some bladder spasms due to the stent. I have discussed cysto right ureteroscopy possible laser lithotripsy stent exchange vs stent removal. [facility] Medical History Atrial fibrillation Renal colic Surgical History Hx of cystoscopy Hx of lithotripsy Family History Father No problems noted. Mother No problems noted. Social History Household Members Other:: 2 year old daughter Are you a primary manager managed care to a significant other at home: Yes (50/50 custody with child's mother) Do you presently have visiting nurse or other home services: No Patient Tobacco Use Status: Never used Tobacco Review of Systems Const All systems reviewed & are unremarkable except as noted in HPI and below Reports no additional complaints Eyes Reports no additional complaints ENT Reports no additional complaints Card Reports no additional complaints Resp Reports no additional complaints GI Reports no additional complaints Reports as per HPI Musc Reports no additional complaints Skin/Breast Reports system reviewed and no additional complaints, except as documented Neuro Reports no additional complaints Psych Reports no additional complaints Endo Reports no additional complaints Ari/Lymph Reports no additional complaints Aller/Immun Reports no additional complaints Results Reviewed Results Reviewed: Date of Service: 09/28/23 EXAMINATION: CT ABDOMEN AND PELVIS WITHOUT CONTRAST CLINICAL INFORMATION: Right-sided flank pain COMPARISON: CT abdomen pelvis 12/06/2019, renal ultrasound 02/15/2021 TECHNIQUE: Multidetector volumetric imaging was performed from the superior aspect of the liver through the pubic symphysis. Sagittal and coronal reformatted images were obtained on the technologist's workstation. This CT examination was performed using dose optimization techniques as appropriate, variously including the following: *Automated exposure control *Adjustment of mA and/or kV according to patient size (this includes techniques or standardized protocols for targeted exams where dose is matched to indication/reason for exam; i.e. extremities or head) *Use of iterative reconstruction technique DLP: 914 mGy-cm FINDINGS: LUNG BASES: The visualized lung bases are unremarkable. LIVER, GALLBLADDER, AND BILIARY TREE: The liver is enlarged measuring just over 19 cm in cephalocaudad dimension with decreased attenuation consistent with hepatic steatosis. No focal hepatic lesion or biliary ductal dilatation is present. The gallbladder is unremarkable with no evidence of radiopaque gallstones, gallbladder wall thickening, or obvious pericholecystic inflammatory changes. PANCREAS: Unremarkable. SPLEEN: Spleen is mildly enlarged at 12.6 cm. ADRENAL GLANDS: Unremarkable. KIDNEYS AND URETERS: Right: There is an obstructing 6 x 3 mm stone present at the right UVJ with dilatation of the ureter and mild right-sided hydronephrosis. 2 nonobstructing intrarenal calculi are seen the largest measuring just under 5 mm in the upper pole. No renal masses are seen. Left: There is a nonobstructing 3 mm left lower pole renal calculus. No hydronephrosis or renal masses. The left ureter appears normal. BLADDER: Unremarkable. GASTROINTESTINAL TRACT: The small and large bowel are unremarkable. The appendix is unremarkable. ABDOMINAL WALL: No significant hernia is appreciated. LYMPH NODES: Normal. VASCULAR: Unremarkable. PELVIC VISCERA: The prostate and seminal vesicles are unremarkable. OSSEOUS STRUCTURES: Unremarkable. IMPRESSION: 1. Obstructing 6 x 3 mm right UVJ calculus with mild right-sided hydronephrosis. 2. Bilateral nonobstructing intrarenal calculi. 3. Enlarged fatty liver with mild splenomegaly. Assessment & Plan Assessment & Plan (1) Calcium nephrolithiasis: Code(s): N20.0 - Calculus of kidney Category: Medical Plan Metabolic workup, 24 hour urine. Schedule right ESWL. Vitamin B6 100 mg daily Medications: New pyridoxine (vitamin B6) 100 mg PO DAILY 90 tabs 3RF Patient Instructions: The patient had an opportunity to ask questions regarding treatment plan. The patient expressed understanding and agreement with the above treatment plan. The patient is aware they should contact our office by phone for worsening of their current condition or the appearance of new symptoms. Compliance is encouraged with any medications and followup testing that is ordered. It is a privilege to be allowed the opportunity to participate in the urologic care of your patient. If you have any questions or concerns regarding treatment for the above conditions please do not hesitate to contact me. The office telephone contact is [phone]. This note is constructed in part using voice recognition software. While every effort has been made to ensure accuracy water pipe installer errors may have been included. Yours sincerely, Emily Colvin MD Coding Level of Care Code Est Pt Level 4 (87190) Diagnoses Calcium nephrolithiasis N20.0
== END 2023-11-09 13:49 | disposition home or self-care (01) ==
PROVIDERS: PCP Internal Medicine; Visit Provider Urology
DX: N20.0 Calculus of kidney (principal)
CPT/HCPCS: 99214

== ENCOUNTER → 2023-11-09 13:15 | Outpatient (BNVA) | payer OTHER, SELFPAY | PROVIDERS: PCP Internal Medicine; Visit Provider Urology ==

== ENCOUNTER 2023-11-22 06:46 | Day surgery (SDC) | payer OTHER, SELFPAY ==
--- NOTE | 2023-11-20 13:21 | P.CONAN_ITS ---
Documented by User: Jazmin Barth NP 11/20/23 13:23 HPI - Anesthesia Eval Consult details Narrative: 32yo M For Right ESWL s/p cysto, etc with GA-LMA 5 afib x 1 four years ago with prior cysto. f/u negative: no further problems PMFSH Active Problems Active Problems: All Active Problems Calcium nephrolithiasis (Acute) Ureteral stent present (Acute) Ureterolithiasis (Acute) Past Medical History Medical History Atrial fibrillation Renal colic Family History Family History Father No problems noted. Mother No problems noted. Family history of problems with anesthesia: No Surgical History Surgical History Hx of cystoscopy Hx of lithotripsy History of Problems with Anesthesia: Yes (states afib x 1 four years ago with prior cysto. f/u negative: no further problems) Social History Social History Household Members Other:: 2 year old daughter Are you a primary geriatric personal care aide to a significant other at home: Yes (50/50 custody with child's mother) Do you presently have visiting nurse or other home services: No Patient Tobacco Use Status: Never used Tobacco Use of substances other than those prescribed or required for medical reasons: No Are you DNR?: No Advance Directives: No Advance Directives Information Provided: Yes Meds Allergies Allergy/AdvReac Type Severity Reaction Status Date / Time No Known Allergies Allergy Verified 10/11/23 15:16 Exam Pertinent Lab Results Pertinent Lab Results: Laboratory Tests 09/28/23 09/28/23 03:41 04:33 WBC 12.4 H RBC 5.17 Hgb 15.2 Hct 43.5 MCV 84.1 MCH 29.4 MCHC 34.9 RDW 12.5 Plt Count 264 MPV 9.6 Immature Gran % (Auto) 0.3 Neut % (Auto) 83.9 H Lymph % (Auto) 11.0 L [place] % (Auto) 4.4 Eos % (Auto) 0.2 Baso % (Auto) 0.2 Lymph # (Auto) 1.4 [place] # (Auto) 0.6 Eos # (Auto) 0.0 Baso # (Auto) 0.0 Abs Immat Gran (auto) 0.04 H Absolute Neuts (auto) 10.4 H Absolute Nucleated RBC 0.000 Nucleated RBC % (auto) 0.0 Sodium 140 Potassium 4.1 Chloride 108 Carbon Dioxide 21 L Anion Gap 15 BUN 18 H Creatinine 1.09 Estim Creat Clear Calc 134.8 Estimated GFR > 60 Random Glucose 141 H Calcium 9.8 Total Bilirubin 0.6 AST 22 ALT 29 Alkaline Phosphatase 79 Total Protein 8.3 H Albumin 4.6 Urine Color Yellow Urine Appearance Clear Urine pH 6.0 Ur Specific [place] 1.025 Urine Protein Trace Urine Glucose (UA) Negative Urine Ketones 15 Urine Blood Moderate (2+) H Urine Nitrite Negative Ur Leukocyte Esterase Negative Urine RBC 11-20 H Urine WBC 0-5 Ur Squamous Epith Cells 0-2 Urine Bacteria None Seen Hyaline Casts 0-2 Assessment and Plan Assessment Anesthesia Assessment: Chart Reviewed Final Anesthetic Review Family History of Problems with Anesthesia: No History of Problems with Anesthesia: Yes (states afib x 1 four years ago with prior cysto. f/u negative: no further problems) Documented by User: Cliff Issa MD 11/22/23 09:03 [facility] Past Medical History Medical History Atrial fibrillation Renal colic Family History Family History Father No problems noted. Mother No problems noted. Surgical History Surgical History Hx of cystoscopy Hx of lithotripsy Social History Social History Household Members Other:: 2 year old daughter Are you a primary geriatric personal care aide to a significant other at home: Yes (50/50 custody with child's mother) Do you presently have visiting nurse or other home services: No Patient Tobacco Use Status: Never used Tobacco Use of substances other than those prescribed or required for medical reasons: No Are you DNR?: No Advance Directives: No Advance Directives Information Provided: Yes Meds Allergies Allergy/AdvReac Type Severity Reaction Status Date / Time No Known Allergies Allergy Verified 10/11/23 15:16 Exam Airway Mallampati Class: II TM Dist: <=3cm Neck ROM: Full Loose/Missing/Broken Teeth: No Heart: ok Lungs: ok Assessment and Plan Assessment Anesthesia Assessment: Anesthesia Plan Discussed Final Anesthetic Review NPO: Yes ASA Class: III Final Preanesthetic Review: No Changes in Pt Med Stat, Meds/Allgs Chart Reviewed, Consent Obtained/Reviewed and Anes Risks/Benef Reviewed Patient Risk: Intermediate Procedure Risk: Low Anesthetic Plan Anesthetic Plan: GA and Agree w/ Assess. and Plan Disposition: Standard PACU
--- NOTE | ~2023-11-22 | XR_ITS ---
EXAMINATION: XR ABDOMEN KUB CLINICAL INDICATION: Pre-ESWL. COMPARISON: KUB 10/11/2023. TECHNIQUE: AP view of the abdomen. FINDINGS: Right-sided indwelling double-J stent has been removed. No definite calcifications are seen overlying the course of the urinary collecting systems. The bowel gas pattern is unremarkable. XR/XR KUB IMPRESSION: Right-sided double-J stent has been removed. No definite calcifications are seen overlying the course of the urinary collecting systems.
[2023-11-22 07:01] VITALS: BMI 42.3
[2023-11-22 07:31] VITALS: BP 135/83; PULSE 75; RESP 16; TEMP 36.8; O2SAT 96
[2023-11-22] MEDS: Lactated Ringers 1,000 ML 100 ML IVCONT (07:38)
--- NOTE | 2023-11-22 08:39 | MHC.SHP ---
Pre-Procedural Eval Section A - 24 Hr Update-Section A only Date of Service: 11/22/23 The patient is an INPATIENT: No The patient has been examined within 24 hours of the surgical procedure. The History & Physical has been completed within 30 days and I have reviewed it.: Yes Section B - Complete if H&P > 30 days Chief Complaint: Calculus of kidney Allergies: Allergies Allergy/AdvReac Type Severity Reaction Status Date / Time No Known Allergies Allergy Verified 10/11/23 15:16 Plan Diagnosis/Plan: Unchanged I have reviewed the history and physical and performed a pertinent physical examination on my patient. No changes have occurred unless specified. Right ESWL. Discussed risks to include but not limited to, blood in the urine, bruising to the skin, kidney hematoma, possible need for another procedure if a stone fragment obstructs the ureter while passing, possible need to repeat procedure if stone is not completely fragmented. Time Spent With Patient Time: Total time managing care of this patient today ____ minutes.
[2023-11-22 10:02] VITALS: BP 95/60; PULSE 81; RESP 20; TEMP 36.5; O2SAT 90
[2023-11-22 10:07] VITALS: BP 102/61; PULSE 74; RESP 20; O2SAT 92
[2023-11-22 10:12] VITALS: BP 111/54; PULSE 67; RESP 20; O2SAT 95
[2023-11-22 10:17] VITALS: BP 114/61; PULSE 66; RESP 20; O2SAT 97
--- NOTE | 2023-11-22 10:19 | W.PM.OPN ---
Operative Note Operative Note Date of Service: 11/22/23 Narrative: PreOperative Diagnosis:? ? Right Renal stone Post Operative Diagnosis:?Right? Renal stone Procedure:?Right? ESWL Surgeon:?Dr Emily Colvin Anesthesia:? General Indications for procedure: The patient understands there is a risk of bruising or hematoma to the kidney, infection, and stone migration following the procedure and subsequent intervention may be required.? - Imaging 5 by 3 mm stone, right kidney upper pole. Procedure: After informed consent was verified the patient was brought to the operating room and placed in a supine position.? Anesthesia was performed per protocol. Safety pause time-out was performed. Imaging was displayed in the room and laterality confirmed. ESWL was performed.?The stone was visualized on both fluoroscopy and ultrasound.? Shockwave lithotripsy was performed, with a maximum rate of 120 hertz. After the first 300 shocks a pause for 3 minutes was completed.? The power was increased during the procedure, after 1500 shocks, power was increased to 20. A total of 2500 shocks maximum power 20 and maximum rate of 120 hertz.? Some fragmentation of the stone was appreciated. The patient tolerated the procedure well and was transferred to the recovery area upon completion. Complications: None
[2023-11-22 10:32] VITALS: BP 116/66; PULSE 73; RESP 16; TEMP 36.6; O2SAT 97
== END 2023-11-22 11:33 | disposition home or self-care (01) ==
PROVIDERS: Visit Provider Urology
PROC: (CPT 50590; principal; 2023-11-22 08:30)
DX: N20.0 Calculus of kidney (principal)
CPT/HCPCS: 50590; 74018; J0131; J0690; J2704; J3010

== ENCOUNTER → 2023-11-22 06:46 | Outpatient (BNV) | payer OTHER, SELFPAY | PROVIDERS: Visit Provider Urology | DX: N20.0 Calculus of kidney (principal) | CPT/HCPCS: 50590 ==

== ENCOUNTER 2024-02-08 14:03 | Outpatient (REF) | payer OTHER, SELFPAY ==
--- NOTE | ~2024-02-08 | US_ITS ---
EXAMINATION: US BILATERAL KIDNEYS CLINICAL INFORMATION: Calculus of ureter. COMPARISON: CT abdomen and pelvis 09/28/2023. TECHNIQUE: Real-time imaging of the kidneys. FINDINGS: RIGHT KIDNEY: 11.3 x 6.3 x 6.3 cm (SAG x AP x TRV). The kidney is normal in size, contour, and echogenicity. Renal cortical thickness is normal. No calculi or focal parenchymal lesions. No hydronephrosis. LEFT KIDNEY: 12.8 x 6.1 x 6.5 cm (SAG x AP x TRV). The kidney is normal in size, contour, and echogenicity. Renal cortical thickness is normal. No focal parenchymal lesions or hydronephrosis. 4 mm mid pole calculus. 7 mm lower pole calculus. US/US renal BI IMPRESSION: Nonobstructing left renal calculi. No hydronephrosis. Electronically signed by: Bill Connolly MD 02/21/2024 04:07 PM EDT
== END 2024-02-08 14:04 | disposition home or self-care (01) ==
LOC: HO.HMGCX 14:03
PROVIDERS: PCP Internal Medicine; Visit Provider Urology
DX: N20.1 Calculus of ureter (principal)
CPT/HCPCS: 76775

== ENCOUNTER 2024-02-16 15:23 | Outpatient (AMB) | payer OTHER, SELFPAY ==
--- NOTE | 2024-02-16 15:25 | A.OFFVIS_ITS ---
Intake Visit Reasons: ESWL- follow up/US Intake Note: Patient is present for ESWL F/U US Urology Medication:PERCOCET, VITAMINH B6 Antibiotic Allergy:NONE Blood Thinner:NONE Asbestos Shingle Inspector Required: No Allergies No Known Allergies Allergy (Verified 02/16/24 15:26) HPI Comments Details: 02/16/2024--Pratik is status post right ESWL. I have reviewed follow-up renal ultrasound there was good fragmentation of the stone no calcification seen in the right kidney too small calcifications in the left kidney. In review of his chart, 20 minutes spent in review of records pertaining to this visit and including [id number] discussion with the patient and documentation of this visit. I have discussed with him that his previous 24 hour urine collection noted hypercalciura, I did discuss with him lowering the salt in his diet. I will refer him to Nephrology as well. Follow-up with me in 1 year renal ultrasound at that time 11/09/2023--Pratik is status post ureteroscopy and stent removal on 10/24/2023. He is followed for nephrolithiasis. He has bilateral renal stones largest 5 mm in the right kidney. I have discussed management including ESWL versus conservative monitoring. Discussed risks to include but not limited to, blood in the urine, bruising to the skin, kidney hematoma, possible need for another procedure if a stone fragment obstructs the ureter while passing, possible need to repeat procedure if stone is not completely fragmented. I have discussed diet modification to decrease risk of forming more kidney stones. I have discussed low oxalate diet and specific foods to avoid including certain green leafy vegetables, chocalate, nuts, tea, beets, rubarb; low sodium, decreased use of animal protein and the importance of hydration drinking up to 2-2.5 liters of fluids and use of adding lemon to water to increase citrate in the diet. A pamphlet is also provided today. Plan schedule right ESWL. 24 hour urine collection. Vitamin B6 100 mg daily CTAP: 09/28/23--6 mm right UVJ stone in addition right kidney 2 mm and 5 mm stone, left kidney 3 mm stone Review of chart: 10/11/2023 Pratik is a 32-year-old male who was initially evaluated 09/28/23 with complaints of right flank pain nausea vomiting. CT imaging noted bilateral renal stones with a 6 mm obstructing right ureteral stone. He is status post cystoscopy right ureteroscopy right ureteral stent. He presents for follow-up for further stone management. He states that he has had some bladder spasms due to the stent. I have discussed cysto right ureteroscopy possible laser lithotripsy stent exchange vs stent removal. [facility] Medical History Atrial fibrillation Renal colic Surgical History Hx of cystoscopy Hx of lithotripsy Family History Father No problems noted. Mother No problems noted. Social History Household Members Other:: 2 year old daughter Are you a primary career development specialist to a significant other at home: Yes (50/50 custody with child's mother) Do you presently have visiting nurse or other home services: No Patient Tobacco Use Status: Never used Tobacco Review of Systems Const All systems reviewed & are unremarkable except as noted in HPI and below Reports no additional complaints Eyes Reports no additional complaints ENT Reports no additional complaints Card Reports no additional complaints Resp Reports no additional complaints GI Reports no additional complaints Reports as per HPI Musc Reports no additional complaints Skin/Breast Reports system reviewed and no additional complaints, except as documented Neuro Reports no additional complaints Psych Reports no additional complaints Endo Reports no additional complaints Ari/Lymph Reports no additional complaints Aller/Immun Reports no additional complaints Assessment & Plan Assessment & Plan (1) Calcium nephrolithiasis: Code(s): N20.0 - Calculus of kidney Category: Medical (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 I will refer him to Nephrology as well. Follow-up with me in 1 year renal ultrasound at that time Orders: Orders US renal BI 02/08/24 N20.1 - Calculus of ureter Referrals Nephrology Referral R82.994 - Hypercalciuria Patient Instructions: The patient had an opportunity to ask questions regarding treatment plan. The patient expressed understanding and agreement with the above treatment plan. The patient is aware they should contact our office by phone for worsening of their current condition or the appearance of new symptoms. Compliance is encouraged with any medications and followup testing that is ordered. It is a privilege to be allowed the opportunity to participate in the urologic care of your patient. If you have any questions or concerns regarding treatment for the above conditions please do not hesitate to contact me. The office telephone contact is [phone]. This note is constructed in part using voice recognition software. While every effort has been made to ensure accuracy stock driver errors may have been included. Yours sincerely, Emily Colvin MD Coding Level of Care Code Est Pt Level 3 (86652) Diagnoses Calcium nephrolithiasis N20.0 Hypercalciuria R82.994 Time Spent (min) 20 Comment ESWL under global, modify discussed plan for hypercalciuria therapy
== END 2024-02-16 15:50 | disposition home or self-care (01) ==
PROVIDERS: PCP Internal Medicine; Visit Provider Urology
DX: N20.0 Calculus of kidney (principal); R82.994 Hypercalciuria
CPT/HCPCS: 99024

== ENCOUNTER → 2024-02-16 15:23 | Outpatient (BNVA) | payer OTHER, SELFPAY | PROVIDERS: PCP Internal Medicine; Visit Provider Urology | DX: N20.1 Calculus of ureter (principal) ==

== ENCOUNTER 2024-03-08 11:05 | Outpatient (AMB) | payer OTHER, SELFPAY ==
--- NOTE | 2024-03-08 11:05 | HO.NEPHOV ---
Vital Signs 03/08/24 11:06 Height 5 ft 10 in Weight 296 lb BMI 42.5 BP 118/80 Blood Pressure Location Lt brachial Position Sitting Pulse 72 Pulse Source Pulse Oximeter Pulse Oximetry (%) 97 Oxygen Delivery Method Room Air Intake Visit Reasons: Hypercalciuria/ Conf Machine Wedger Required: No Accompanied by: Self / Same As Patient Allergies No Known Allergies Allergy (Verified 03/08/24 11:09) Medication List - Last Reconciled 03/08/24 by Luis F Wagner MD pyridoxine (vitamin B6) 100 mg PO DAILY HPI Comments Details: 33-year-old man with a history of obesity and renal calculi. He has been referred for evaluation of hypercalciuria [facility] Medical History (Updated 03/08/24 @ 11:14 by YONNY Meehan) H/O nephrolithotomy with removal of calculi (~11/2023) Atrial fibrillation Renal colic Surgical History Hx of cystoscopy Hx of lithotripsy Family History Father No problems noted. Mother No problems noted. Social History Household Members Other:: 2 year old daughter Are you a primary dog day care attendant to a significant other at home: Yes (50/50 custody with child's mother) Do you presently have visiting nurse or other home services: No Patient Tobacco Use Status: Never used Tobacco Review of Systems Const Reports as per HPI, Denies anorexia, Denies fatigue, Denies fever(s) and Denies headache(s) Eyes Denies blurry vision ENT Denies headache(s) Card Denies chest pain, Denies pedal edema and Denies dyspnea Resp Denies cough, Denies hemoptysis and Denies dyspnea GI Denies diarrhea, Denies nausea and Denies vomiting Denies hematuria, Denies urinary frequency and Denies urinary hesitancy Neuro Denies confusion, Denies headache(s) and Denies focal weakness Psych Denies confusion Endo Denies cold intolerance, Denies fatigue and Denies polyuria Physical Exam Vital Signs: Last Vital Signs Pulse 72 03/08/24 11:06 BP 118/80 03/08/24 11:06 Pulse Ox 97 03/08/24 11:06 Oxygen Delivery Method Room Air 03/08/24 11:06 BMI result Body Mass Index 42.5 Const General: No confusion Orientation/consciousness: No confusion Neuro General: No confusion Results Reviewed Nephrology Results: Hgb 15.2 g/dl (14.0-18.0) 09/28/23 WBC 12.4 X10*3/uL (4.8-10.8) H 09/28/23 Plt Count 264 X10*3/uL (160-400) 09/28/23 Sodium 140 mmol/L (135-145) 09/28/23 Potassium 4.1 mmol/L (3.3-5.1) 09/28/23 Chloride 108 mmol/L (96-108) 09/28/23 Carbon Dioxide 21 mmol/L (22-29) L 09/28/23 BUN 18 mg/dL (9-16) H 09/28/23 Creatinine 1.09 mg/dL (0.5-1.4) 09/28/23 Calcium 9.8 mg/dL (8.4-10.2) 09/28/23 Urine Protein Trace mg/dL (Neg-Trace) 09/28/23 Renal US 02/08/24 Assessment & Plan Assessment & Plan (1) Calcium nephrolithiasis: Code(s): N20.0 - Calculus of kidney Category: Medical (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 Check calcium phosphorus and PTH. Repeat 24 urine collection. Encouraged renal low-sodium diet Increase p.o. fluids to maintain urine output of 2 L. Low oxalate diet. Orders: Orders Sodium, 24Hr Urine Group 2 Weeks N20.0 - Calculus of kidney, R82.994 - Hypercalciuria Uric Acid, 24Hr Urine Group 2 Weeks N20.0 - Calculus of kidney, R82.994 - Hypercalciuria Citric Acid 24hr Urine 2 Weeks N20.0 - Calculus of kidney, R82.994 - Hypercalciuria Phosphorus 2 Weeks N20.0 - Calculus of kidney, R82.994 - Hypercalciuria Parathyroid Hormone Intact 2 Weeks N20.0 - Calculus of kidney, R82.994 - Hypercalciuria Uric Acid 2 Weeks N20.0 - Calculus of kidney, R82.994 - Hypercalciuria UA and rflx microscopic 2 Weeks N20.0 - Calculus of kidney, R82.994 - Hypercalciuria Creatinine, 24 Hr Group 2 Weeks N20.0 - Calculus of kidney, R82.994 - Hypercalciuria Calcium, 24 Hr Ur 2 Weeks N20.0 - Calculus of kidney, R82.994 - Hypercalciuria Oxalate, 24 Hr 2 Weeks N20.0 - Calculus of kidney, R82.994 - Hypercalciuria Basic Metabolic Panel 2 Weeks N20.0 - Calculus of kidney, R82.994 - Hypercalciuria Magnesium 2 Weeks N20.0 - Calculus of kidney, R82.994 - Hypercalciuria Coding Level of Care Code New Pt Level 4 (02421) Diagnoses Calcium nephrolithiasis N20.0 Hypercalciuria R82.994
[2024-03-08 11:06] VITALS: BP 118/80; PULSE 72; O2SAT 97; BMI 42.5
== END 2024-03-08 11:38 | disposition home or self-care (01) ==
PROVIDERS: Referring Provider Urology; Visit Provider Internal Medicine Hypertension Specialist
DX: N20.0 Calculus of kidney (principal); R82.994 Hypercalciuria
CPT/HCPCS: 99204

== ENCOUNTER → 2024-03-08 11:05 | Outpatient (BNVA) | payer OTHER, SELFPAY | PROVIDERS: Referring Provider Urology; Visit Provider Internal Medicine Hypertension Specialist | DX: N20.0 Calculus of kidney (principal); R82.994 Hypercalciuria | CPT/HCPCS: 99202 ==

== ENCOUNTER 2024-04-05 14:40 | Outpatient (REF) | payer OTHER, SELFPAY ==
[2024-04-05 15:40] LABS: Appearance Urine Clear; Color Urine Yellow; Glucose Urine UA Negative (Negative); Leukocyte Esterase Urine Negative (Negative); Nitrite Urine Negative (Negative); PH 5.5 (5.0-9.0); Urine Blood Negative (Negative); Urine Ketones Negative (Negative); Urine Protein Negative (Neg-Trace)
[2024-04-05 16:00] LABS: Anion Gap 13 (12-20); Blood Urea Nitrogen 12 mg/dL (9-16); Carbon Dioxide 25 mmol/L (22-29); Chloride 107 mmol/L (96-108); Estimated Glomerular Filt Rate > 60; Glucose Random 88 mg/dL (60-115); Magnesium 1.9 mg/dL (1.6-2.6); Phosphorus 3.3 mg/dL (2.7-4.5); Sodium 141 mmol/L (135-145); Uric Acid 7.8 mg/dL (3.4-7.0)
== END 2024-04-05 14:41 | disposition home or self-care (01) ==
LOC: HO.LAB 14:40
PROVIDERS: Visit Provider Internal Medicine Hypertension Specialist
DX: N20.0 Calculus of kidney (principal); R82.994 Hypercalciuria
CPT/HCPCS: 36415; 80048; 81003; 83735; 83970; 84100; 84550

== ENCOUNTER 2024-04-08 17:03 | Outpatient (REF) | payer OTHER, SELFPAY ==
[2024-04-08 18:01] LABS: Creatinine, mg/dL 151.27
[2024-04-08 18:12] LABS: Creatinine, mg/dL 152.65
[2024-04-08 18:17] LABS: Creatinine, 24Hr Urine 2.1 G/Day (1.0-2.0); Sodium 24 Hr Urine 148.4 mmol/Day (40-220); Total Volume 24 Hour Urine 1400 mL
[2024-04-08 18:38] LABS: Creatinine, 24Hr Urine 2.1 G/Day (1.0-2.0); Total Volume 24 Hour Urine 1400 mL
[2024-04-09 21:18] LABS: Calcium, 24 Hr Urine 283 mg/24 h; Calcium/Creatinine Ratio 136 mg/g creat (30-210); Creatinine 24Hr Urine 2.07 g/24 h (0.50-2.15)
[2024-04-15 19:13] LABS: 24hr Urine Total Volume 1400 mL; Oxalic Acid 24 Urine 39.5 mg/24 h (3.6-38.0)
[2024-04-17 08:14] LABS: 24hr Urine Total Volume 1400 mL; Citric Acid, 24hr Urine 463 mg/24 h (100-1300); Citric Acid/Creat Ratio 24U 221 mg/g creat (60-660)
== END 2024-04-08 17:04 | disposition home or self-care (01) ==
LOC: HO.LNP 17:03
PROVIDERS: Visit Provider Internal Medicine Hypertension Specialist
DX: N20.0 Calculus of kidney (principal); R82.994 Hypercalciuria
CPT/HCPCS: 82340; 82507; 83945; 84300; 84560

== ENCOUNTER 2024-04-12 13:56 | Outpatient (AMB) | payer OTHER, SELFPAY ==
[2024-04-12 13:59] VITALS: BP 136/82; PULSE 93; O2SAT 97; BMI 43.0
--- NOTE | 2024-04-12 13:59 | HO.NEPHOV_ITS ---
Vital Signs 04/12/24 13:59 Height 5 ft 10 in Weight 300 lb BMI 43.0 BP 136/82 Blood Pressure Location Rt brachial Position Sitting Pulse 93 Pulse Source Pulse Oximeter Pulse Oximetry (%) 97 Oxygen Delivery Method Room Air Intake Visit Reasons: Hypercalciuria/ LVM Geothermal Powerplant Supervisor Required: No Accompanied by: Self / Same As Patient Allergies No Known Allergies Allergy (Verified 04/12/24 13:59) HPI Comments Details: 33-year-old man with a history of obesity and renal calculi. He has been referred for evaluation of hypercalciuria 04/12/24 NOw on low salt diet feels better [facility] Medical History (Updated 03/08/24 @ 11:14 by YONNY Meehan) H/O nephrolithotomy with removal of calculi (~11/2023) Atrial fibrillation Renal colic Surgical History Hx of cystoscopy Hx of lithotripsy Family History Father No problems noted. Mother No problems noted. Social History Household Members Other:: 2 year old daughter Are you a primary hearing healthcare practitioner to a significant other at home: Yes (50/50 custody with child's mother) Do you presently have visiting nurse or other home services: No Patient Tobacco Use Status: Never used Tobacco Physical Exam Vital Signs: Last Vital Signs Pulse 93 04/12/24 13:59 BP 136/82 04/12/24 13:59 Pulse Ox 97 04/12/24 13:59 Oxygen Delivery Method Room Air 04/12/24 13:59 BMI result Body Mass Index 43.0 Const General: comfortable; No acute distress Orientation/consciousness: patient oriented x3 Eyes General: appearance normal, both eyes and all related structures Visual Christianson: normal visual christianson by confrontation Neck Neck: Yes supple and Yes no JVD Resp Effort & Inspection: normal respiratory effort and respiratory effort not decreased Auscultation: rhonchi Cardio Palpation: no palpable S3 and no palpable S4 Heart sounds: no rubs GI Inspection: Yes normal to inspection Palpation (GI): Soft to palpation Percussion: Yes normal to percussion Auscultation: normal bowel sounds General: Yes no CVA tenderness Back/Spine/Pelvis Back: no CVA tenderness Skin General skin exam: no petechiae and no purpura Neuro General: patient oriented x3 and no focal motor deficits Extrem General: No clubbing and No edema Results Reviewed Nephrology Results: Sodium 141 mmol/L (135-145) 04/05/24 Potassium 4.0 mmol/L (3.3-5.1) 04/05/24 Chloride 107 mmol/L (96-108) 04/05/24 Carbon Dioxide 25 mmol/L (22-29) 04/05/24 BUN 12 mg/dL (9-16) 04/05/24 Creatinine 0.84 mg/dL (0.5-1.4) 04/05/24 Calcium 10.0 mg/dL (8.4-10.2) 04/05/24 Phosphorus 3.3 mg/dL (2.7-4.5) 04/05/24 PTH Intact 50.0 pg/mL (8.7-77.1) 04/05/24 Urine Protein Negative mg/dL (Neg-Trace) 04/05/24 Renal US 02/08/24 Assessment & Plan Assessment & Plan (1) Calcium nephrolithiasis: Code(s): N20.0 - Calculus of kidney Category: Medical (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 fluids to maintain urine output of 2 L. Henri l recheck in 6 months Orders: Orders Creatinine, 24 Hr Group 6 Months N20.0 - Calculus of kidney Calcium, 24 Hr Ur 6 Months N20.0 - Calculus of kidney Basic Metabolic Panel 6 Months N20.0 - Calculus of kidney Oxalate, 24 Hr 6 Months N20.0 - Calculus of kidney Sodium, 24Hr Urine Group 6 Months N20.0 - Calculus of kidney Coding Level of Care Code Est Pt Level 4 (23894) Diagnoses Calcium nephrolithiasis N20.0 Hypercalciuria R82.994
== END 2024-04-12 14:23 | disposition home or self-care (01) ==
PROVIDERS: Visit Provider Internal Medicine Hypertension Specialist
DX: N20.0 Calculus of kidney (principal); R82.994 Hypercalciuria
CPT/HCPCS: 99214

== ENCOUNTER → 2024-04-12 13:56 | Outpatient (BNVA) | payer OTHER, SELFPAY | PROVIDERS: Visit Provider Internal Medicine Hypertension Specialist | DX: N20.0 Calculus of kidney (principal); R82.994 Hypercalciuria | CPT/HCPCS: 99212 ==